=== PATIENT | male | born 1960 | race Caucasian/White ===

== ENCOUNTER → 2017-01-10 | Outpatient (CLI) | payer BC ==
[2017-01-10 08:38] LABS: CHLORIDE,CL 105 mmol/L (98-110); SODIUM,NA 140 mmol/L (136-146)
== END ==
LOC: MW.CHFP 07:33
PROVIDERS: ATTEND Emergency Medicine
DX: E11.69 Type 2 diabetes mellitus with other specified complication (principal); E78.5 Hyperlipidemia, unspecified
CPT/HCPCS: 36415; 80048; 80061; 82044; 83036; 84460

== ENCOUNTER 2020-02-07 10:20 | Emergency (ER) | payer BC ==
[2020-02-07] MEDS ORDERED: Sodium Chloride 0.9% 10 ML Syringe FLUSH PRN (10:44)
[2020-02-07] MEDS ORDERED: Ketorolac 30 MG/ML SDV IVPUSH ONE (10:44)
[2020-02-07] MEDS ORDERED: Sodium Chloride 0.9% 1,000 ML IV ONE (10:44)
[2020-02-07] MEDS ORDERED: Sodium Chloride 0.9% 2.5 ML Syringe FLUSH PRN (10:44)
--- NOTE | 2020-02-07 10:44 | EDM.PDOC ---
ED HPI GENERAL MEDICAL PROBLEM - General Chief Complaint: Genitourinary Problem Stated Complaint: REN ASHLEY STONE Time Seen by Provider: 02/07/20 10:40 Source of Information: Reports: Patient History Limitations: Reports: No Limitations - History of Present Illness INITIAL COMMENTS - FREE TEXT/NARRATIVE: HISTORY AND PHYSICAL: History of present illness: Patient is a 59-year-old male presents to the ED with complaint of possible kidney stone. He states he woke up this morning with pain in his middle low back. He states pain is constant. He vomited once on his way to the ED this morning. He denies fevers, chills, dysuria, hematuria, abdominal or testicular pain, chest pain, shortness of breath. He states he has had a kidney stone once years ago. Past medical history significant or diabetes and hypertension. Review of systems: As per history of present illness and below otherwise all systems reviewed and negative. Past medical history: As per history of present illness and as reviewed below otherwise noncontributory. Surgical history: As per history of present illness and as reviewed below otherwise noncontributory. Social history: No reported history of drug or alcohol abuse. Family history: As per history of present illness and as reviewed below otherwise noncontributory. Physical exam: General: Patient sitting comfortably in no acute distress and nontoxic appearing HEENT: Atraumatic, normocephalic, pupils reactive, negative for conjunctival pallor or scleral icterus, mucous membranes moist, throat clear, neck supple, nontender, trachea midline. No meningeal signs. Lungs: Clear to auscultation, breath sounds equal bilaterally, chest nontender. Heart: S1S2, regular, negative for clicks, rubs, or overt murmur. Abdomen: Soft, nondistended, nontender. Negative for masses or hepatosplenomegaly. Negative for costovertebral tenderness. No rigidity, rebound , guarding. Pelvis: Stable nontender. Genitourinary: Deferred. Rectal: Deferred. Extremities: Atraumatic, negative for cords or calf pain. Neurovascular unremarkable. Neuro: Awake, alert, oriented. Cranial nerves II through XII unremarkable. Cerebellum unremarkable. Motor and sensory unremarkable throughout. Exam nonfocal. Notes: Diagnostics: CBC, CMP, UA Therapeutics: 1L NS IV 30mg Toradol IV Prescriptions: Minerva Impression: Kidney stone Plan: Take flomax and use strainer as instructed Take norco as needed for severe pain, do not take while driving as it may make you drowsy Follow up with primary care provider and urology as discussed Return to ED As needed as discussed Definitive disposition and diagnosis as appropriate pending reevaluation and review of above. Bilateral Flank Pain Score (Numeric/FACES): 10 - Related Data Allergies Allergy/AdvReac Type Severity Reaction Status Date / Time morphine Allergy Nausea and Verified 02/07/20 10:43 Vomiting Home Meds: Home Meds Aspirin 81 mg PO DAILY 02/07/20 [History] Hydrocodone/Acetaminophen [Minerva 5-325 Tablet] 1 each PO Q6H #12 tablet [Rx] Tamsulosin HCl [Flomax] 0.4 mg PO DAILY #10 capsule 02/07/20 [Rx] lisinopriL [Lisinopril] 40 mg PO DAILY 02/07/20 [History] metFORMIN [Glucophage XR] 500 mg PO DAILY 02/07/20 [History] ED ROS GENERAL - Review of Systems Review Of Systems: Comprehensive ROS is negative, except as noted in HPI. ED EXAM, RENAL/ - Physical Exam Exam: See Below (see dictation) Course - Vital Signs Last Recorded V/S: Last Vital Signs Temp 97.8 F 02/07/20 10:44 Pulse 97 02/07/20 12:15 Resp 16 02/07/20 12:15 BP 165/76 H 02/07/20 12:15 Pulse Ox 97 02/07/20 12:15 - Orders/Labs/Meds Orders: Active Orders 24 hr Category Date Time Status Sodium Chloride 0.9% [Saline Flush] Med 02/07/20 10:44 Ordered 10 ml FLUSH ASDIRECTED PRN Sodium Chloride 0.9% [Saline Flush] Med 02/07/20 10:44 Ordered 2.5 ml FLUSH ASDIRECTED PRN Saline Lock Insert [OM.PC] Stat Oth 02/07/20 10:44 Ordered Medication Orders Sodium Chloride (Saline Flush) 10 ml FLUSH ASDIRECTED PRN PRN Reason: Keep Vein Open Last Admin: 02/07/20 10:50 Dose: 10 ml Sodium Chloride (Saline Flush) 2.5 ml FLUSH ASDIRECTED PRN PRN Reason: Keep Vein Open Last Admin: 02/07/20 10:50 Dose: 2.5 ml Labs: Laboratory Tests 02/07/20 02/07/20 02/07/20 Range/Units 10:30 10:50 10:50 WBC 9.40 (4.0-11.0) K/uL RBC 4.75 (4.50-5.90) M/uL Hgb 15.3 (13.0-17.0) g/dL Hct 44.6 (38.0-50.0) % MCV 93.9 (80.0-98.0) fL MCH 32.2 H (27.0-32.0) pg MCHC 34.3 (31.0-37.0) g/dL RDW Std Deviation 43.6 (28.0-62.0) fl RDW Coeff of Zane 13 (11.0-15.0) % Plt Count 248 (150-400) K/uL MPV 9.60 (7.40-12.00) fL Neut % (Auto) 76.7 (48.0-80.0) % Lymph % (Auto) 14.8 L (16.0-40.0) % Cowley % (Auto) 6.3 (0.0-15.0) % Eos % (Auto) 1.7 (0.0-7.0) % Baso % (Auto) 0.5 (0.0-1.5) % Neut # (Auto) 7.2 H (1.4-5.7) K/uL Lymph # (Auto) 1.4 (0.6-2.4) K/uL Cowley # (Auto) 0.6 (0.0-0.8) K/uL Eos # (Auto) 0.2 (0.0-0.7) K/uL Baso # (Auto) 0.1 (0.0-0.1) K/uL Nucleated RBC % 0.0 /100WBC Nucleated RBCs # 0 K/uL Sodium 138 (136-148) mmol/L Potassium 4.7 (3.5-5.1) mmol/L Chloride 103 (98-107) mmol/L Carbon Dioxide 27.8 (21.0-32.0) mmol/L BUN 10 (7.0-18.0) mg/dL Creatinine 1.3 (0.8-1.3) mg/dL Est Cr Clr Drug Dosing 63.95 mL/min Estimated GFR (MDRD) 56.7 ml/min Glucose 188 H (74-106) mg/dL Calcium 9.3 (8.5-10.1) mg/dL Total Bilirubin 0.7 (0.2-1.0) mg/dL AST 16 (15-37) IU/L ALT 24 (14-63) IU/L Alkaline Phosphatase 84 (46-116) U/L Total Protein 7.5 (6.4-8.2) g/dL Albumin 4.1 (3.4-5.0) g/dL Globulin 3.4 (2.6-4.0) g/dL Albumin/Globulin Ratio 1.2 (0.9-1.6) Urine Color YELLOW Urine Appearance CLEAR Urine pH 6.5 (5.0-8.0) Ur Specific [place] 1.020 (1.001-1.035) Urine Protein NEGATIVE (NEGATIVE) mg/dL Urine Glucose (UA) NEGATIVE (NEGATIVE) mg/dL Urine Ketones NEGATIVE (NEGATIVE) mg/dL Urine Occult Blood LARGE H (NEGATIVE) Urine Nitrite NEGATIVE (NEGATIVE) Urine Bilirubin NEGATIVE (NEGATIVE) Urine Urobilinogen 0.2 (<2.0) EU/dL Ur Leukocyte Esterase NEGATIVE (NEGATIVE) Urine RBC 10-15 (0-2/HPF) Urine WBC 0-1 (0-5/HPF) Ur Epithelial Cells RARE (NONE-FEW) Urine Bacteria RARE (NEGATIVE) Meds: Medications Generic Name Dose Route Start Last Admin Trade Name Freq PRN Reason Stop Dose Admin Sodium Chloride 10 ml 02/07/20 10:44 02/07/20 10:50 Saline Flush FLUSH 10 ml ASDIRECTED PRN Administration Keep Vein Open Sodium Chloride 2.5 ml 02/07/20 10:44 02/07/20 10:50 Saline Flush FLUSH 2.5 ml ASDIRECTED PRN Administration Keep Vein Open Discontinued Medications Generic Name Dose Route Start Last Admin Trade Name Freq PRN Reason Stop Dose Admin Sodium Chloride 1,000 mls @ 999 mls/hr 02/07/20 10:44 02/07/20 10:49 Normal Saline IV 02/07/20 11:44 999 mls/hr STAT ONE Administration Ketorolac Tromethamine 30 mg 02/07/20 10:44 02/07/20 10:50 Toradol IVPUSH 02/07/20 10:45 30 mg ONETIME ONE Administration Departure - Departure Time of Disposition: 12:18 Disposition: Home, Self-Care 01 Condition: Good Clinical Impression: Ureterolithiasis - Discharge Information Prescriptions: Hydrocodone/Acetaminophen [Minerva 5-325 Tablet] 1 each PO Q6H #12 tablet Tamsulosin HCl [Flomax] 0.4 mg PO DAILY #10 capsule Referrals: Jourdan Cornejo MD [Primary Care Provider] - Forms: ED Department Discharge Additional Instructions: The following information is given to patients seen in the emergency department who are being discharged to home. This information is to outline your options for follow-up care. We provide all patients seen in our emergency department with a follow-up referral. The need for follow-up, as well as the timing and circumstances, are variable depending upon the specifics of your emergency department visit. If you don't have a primary care physician on staff, we will provide you with a referral. We always advise you to contact your personal physician following an emergency department visit to inform them of the circumstance of the visit and for follow-up with them and/or the need for any referrals to a consulting specialist. The emergency department will also refer you to a specialist when appropriate. This referral assures that you have the opportunity for follow-up care with a specialist. All of these measure are taken in an effort to provide you with optimal care, which includes your follow-up. Under all circumstances we always encourage you to contact your private physician who remains a resource for coordinating your care. When calling for follow-up care, please make the office aware that this follow-up is from your recent emergency room visit. If for any reason you are refused follow-up, please contact the [facility] Emergency Department at and asked to speak to the emergency department charge nurse. [facility] [address] [place] [id number] [facility] [address] [place] [address] [facility] Specialty Care - Urology [address] [place] [id number] Take flomax and use strainer as instructed Take norco as needed for severe pain, do not take while driving as it may make you drowsy Follow up with primary care provider and urology as discussed Return to ED As needed as discussed Sepsis Event Note - Focused Exam Vital Signs: Vital Signs Temp Pulse Resp BP Pulse Ox 02/07/20 12:15 97 16 165/76 H 97 02/07/20 11:37 81 16 137/51 L 96 02/07/20 10:44 97.8 F 64 18 206/97 H 97 Date Exam was Performed: 02/07/20 Time Exam was Performed: 12:25 - My Orders Last 24 Hours: My Active Orders 02/07/20 10:44 Sodium Chloride 0.9% [Saline Flush] 10 ml FLUSH ASDIRECTED PRN Sodium Chloride 0.9% [Saline Flush] 2.5 ml FLUSH ASDIRECTED PRN Saline Lock Insert [OM.PC] Stat - Assessment/Plan Last 24 Hours: My Active Orders 02/07/20 10:44 Sodium Chloride 0.9% [Saline Flush] 10 ml FLUSH ASDIRECTED PRN Sodium Chloride 0.9% [Saline Flush] 2.5 ml FLUSH ASDIRECTED PRN Saline Lock Insert [OM.PC] Stat
[2020-02-07 11:31] LABS: CARBON DIOXIDE,CO2 27.8 mmol/L (21.0-32.0); POTASSIUM,K 4.7 mmol/L (3.5-5.1)
--- NOTE | 2020-02-07 12:08 | CT ---
INDICATION: Bilateral flank pain. TECHNIQUE: CT abdomen and pelvis without contrast. COMPARISON: CT of the abdomen and pelvis 09/04/2012. FINDINGS: Lower chest: Unremarkable. Liver: Unremarkable. Gallbladder and bile ducts: No cholelithiasis or biliary ductal dilatation. Spleen: Unremarkable. Pancreas: Unremarkable. Adrenal glands: Unremarkable. Kidneys: The right kidney appears slightly edematous and there is mild hydroureteronephrosis and periureteral standing throughout its course. A 3 mm obstructing stone is seen at the right ureterovesicular junction (series 201, image 150). No renal stones bilaterally. No hydronephrosis on the left. No renal lesions within limitations of a noncontrast exam. GI tract: There is malrotation of the midgut with the duodenum never crossing the midline, small bowl in the right abdomen and cecum is in the left mid abdomen with a normal appearing appendix. No bowel obstruction or inflammation. Colonic diverticulosis. Appendix is normal. Vascular structures: No abdominal aortic aneurysm. Lymph nodes: Unremarkable. Miscellaneous: No free air or ascites. Pelvic Organs: Unremarkable. Bones: No acute abnormality. No suspicious bone lesion. Degenerative changes affect the spine. IMPRESSION: 1. There is a 3 mm obstructing stone at the right ureterovesicular junction resulting in mild right hydroureteronephrosis. 5The right kidney also appears slightly edematous. 2. Congenital midgut malrotation. No volvulus. Nonemergent general surgery consultation is recommended. Please note that all CT scans at this facility use dose modulation, iterative reconstruction, and/or weight-based dosing when appropriate to reduce radiation dose to as low as reasonably achievable. Dictated by Melodie Miller MD @ Feb 07 2020 11:49AM Signed by Dr. Melodie Miller @ Feb 07 2020 12:07PM
== END 2020-02-07 12:30 | disposition home or self-care (01) ==
LOC: MW.ED 10:20
DX: N13.2 Hydronephrosis with renal and ureteral calculous obstruction (principal); Z88.5 Allergy status to narcotic agent; Z79.82 Long term (current) use of aspirin; Z79.899 Other long term (current) drug therapy
CPT/HCPCS: 36415; 74176; 80053; 81001; 85025; 96361; 96374; 99284; J1885; J7030; 99283

== ENCOUNTER 2024-02-06 08:17 | Day surgery (SDC) | payer BC ==
[2024-02-06] MEDS: Lactated Ringers 1,000 ML IV SCH (09:12)
[2024-02-06] MEDS ORDERED: propofoL 50 ML ONE ×2 (09:43→15:00)
== END 2024-02-06 16:10 | disposition home or self-care (01) ==
LOC: MW.SDS 08:17
PROVIDERS: ATTEND Surgery
DX: Z12.11 Encounter for screening for malignant neoplasm of colon (principal); K57.30 Diverticulosis of large intestine without perforation or abscess without bleeding; K64.8 Other hemorrhoids; E78.5 Hyperlipidemia, unspecified; I10 Essential (primary) hypertension; E66.9 Obesity, unspecified; G47.33 Obstructive sleep apnea (adult) (pediatric); Z79.84 Long term (current) use of oral hypoglycemic drugs; Z79.899 Other long term (current) drug therapy; Z68.32 Body mass index [BMI] 32.0-32.9, adult; Z88.5 Allergy status to narcotic agent
CPT/HCPCS: 45378; 82947; J2704; J7120

== ENCOUNTER 2024-06-28 03:26 | Emergency (ER) | payer BC ==
[2024-06-28 03:58] LABS: BASOPHILS ABSOLUTE AUTO 0.08 K/uL (0.00-0.20); EOSINOPHILS ABSOLUTE AUTO 0.18 K/uL (0.00-0.45); EOSINOPHILS PERCENT AUTO 2.2 % (0.0-6.0); HEMATOCRIT 44.9 % (42.0-52.0); HEMOGLOBIN 15.7 g/dL (14.0-18.0); IMMATURE GRAN ABSOLUTE AUTO 0.03 K/uL (0.00-0.05); IMMATURE GRAN PERCENT AUTO 0.4 % (0.0-0.4); LYMPHOCYTES ABSOLUTE AUTO 2.58 K/uL (1.00-4.80); LYMPHOCYTES PERCENT AUTO 31.9 % (24.0-44.0); MEAN CORPUSCULAR HEMOGLOBIN 32.2 pg (28.0-32.0); MEAN PLATELET VOLUME 8.9 fL (9.4-12.4); MONOCYTES ABSOLUTE AUTO 0.85 K/uL (0.00-0.80); MONOCYTES PERCENT AUTO 10.5 % (0.0-8.0); NEUTROPHILS ABSOLUTE AUTO 4.38 K/uL (1.80-7.70); PLATELET COUNT,PLT 233 K/uL (150-400); RED BLOOD CELL COUNT 4.88 M/uL (4.52-5.90)
[2024-06-28] MEDS: Ketorolac 30 MG/ML SDV IVPUSH ONE (03:58)
[2024-06-28] MEDS: Ondansetron 4 MG/2 ML SDV IVPUSH ONE (03:58)
[2024-06-28 04:03] LABS: BILIRUBIN,URINE NEGATIVE (NEGATIVE); COLOR,URINE YELLOW; GLUCOSE,URINE 100 mg/dL (NEGATIVE); KETONES,URINE NEGATIVE (NEGATIVE); LEUKOCYTE ESTERASE,URINE NEGATIVE (NEGATIVE); NITRITE,URINE NEGATIVE (NEGATIVE); OCCULT BLOOD,URINE LARGE (NEGATIVE); PH,URINE 5.5 (5.0-8.0); PROTEIN,URINE NEGATIVE (NEGATIVE); UROBILINOGEN,URINE 0.2 EU/dL (<2.0)
[2024-06-28 04:08] LABS: APPEARANCE,URINE HAZY
[2024-06-28 04:16] LABS: BACTERIA,URINE RARE (NEGATIVE); EPITHELIAL CELLS,URINE RARE (NONE-FEW); RBC,URINE 75-100 (0-2/HPF); WBC,URINE 0-1 (0-5/HPF)
[2024-06-28 04:27] LABS: A/G RATIO 1.1 (0.9-1.6); ALBUMIN 4.2 g/dL (3.4-5.0); BILIRUBIN TOTAL 0.8 mg/dL (0.2-1.0); CALCIUM 10.5 mg/dL (8.5-10.1); CARBON DIOXIDE,CO2 28.5 mmol/L (21.0-32.0); CREATININE 1.7 mg/dL (0.8-1.3); EST CRCL DRUG DOSING (CG) 45.92 mL/min; POTASSIUM,K 4.9 mmol/L (3.5-5.1); PROTEIN TOTAL,TP 7.9 g/dL (6.4-8.2)
[2024-06-28] MEDS: Tamsulosin 0.4 MG Cap.ER PO ONE (05:13)
[2024-06-28] MEDS: Sodium Chloride 0.9% 1,000 ML IV SCH (05:13)
[2024-06-28 06:48] LABS: GLUCOSE,URINE 100 mg/dL (NEGATIVE); KETONES,URINE TRACE mg/dL (NEGATIVE); LEUKOCYTE ESTERASE,URINE NEGATIVE (NEGATIVE); NITRITE,URINE NEGATIVE (NEGATIVE); OCCULT BLOOD,URINE LARGE (NEGATIVE); PH,URINE 5.5 (5.0-8.0); PROTEIN,URINE NEGATIVE (NEGATIVE); UROBILINOGEN,URINE 0.2 EU/dL (<2.0)
[2024-06-28 06:52] LABS: APPEARANCE,URINE HAZY; BILIRUBIN,URINE SMALL (NEGATIVE); COLOR,URINE DARK YELLOW
[2024-06-28 07:02] LABS: WBC,URINE 0-1 (0-5/HPF)
[2024-06-28 07:03] LABS: BACTERIA,URINE FEW (NEGATIVE); EPITHELIAL CELLS,URINE RARE (NONE-FEW)
== END 2024-06-28 07:32 | disposition home or self-care (01) ==
LOC: MW.ED 03:26
DX: N20.0 Calculus of kidney (principal); E11.9 Type 2 diabetes mellitus without complications; E66.9 Obesity, unspecified; I10 Essential (primary) hypertension; Z79.84 Long term (current) use of oral hypoglycemic drugs; Z79.899 Other long term (current) drug therapy; Z88.5 Allergy status to narcotic agent
CPT/HCPCS: 36415; 74176; 80053; 81001; 83690; 85025; 96361; 96374; 96375; 99284; A9270; J1885; J2405; J7030

== ENCOUNTER 2025-04-13 10:43 | Observation (INO) | payer BC ==
[2025-04-13 14:49] LABS: BASOPHILS ABSOLUTE AUTO 0.08 K/uL (0.00-0.20); BASOPHILS PERCENT AUTO 1.2 % (0.0-1.0); EOSINOPHILS ABSOLUTE AUTO 0.20 K/uL (0.00-0.45); EOSINOPHILS PERCENT AUTO 3.0 % (0.0-6.0); IMMATURE GRAN ABSOLUTE AUTO 0.06 K/uL (0.00-0.05); IMMATURE GRAN PERCENT AUTO 0.9 % (0.0-0.4); LYMPHOCYTES ABSOLUTE AUTO 1.82 K/uL (1.00-4.80); LYMPHOCYTES PERCENT AUTO 27.6 % (24.0-44.0); MEAN PLATELET VOLUME 10.4 fL (9.4-12.4); MONOCYTES ABSOLUTE AUTO 0.57 K/uL (0.00-0.80); MONOCYTES PERCENT AUTO 8.6 % (0.0-8.0); NEUTROPHILS ABSOLUTE AUTO 3.87 K/uL (1.80-7.70); NEUTROPHILS PERCENT AUTO 58.7 % (41.0-71.0); NRBC ABSOLUTE 0.00 K/uL (0.00-0.02); NRBC PERCENT 0.0 /100WBC (0.0-0.2); PLATELET COUNT,PLT 219 K/uL (150-400); RED BLOOD CELL COUNT 4.63 M/uL (4.52-5.90); WHITE BLOOD CELL COUNT,WBC 6.60 K/uL (3.9-11.3)
[2025-04-13 14:58] LABS: INR 1.01 (0.86-1.11); PTT,PARTIAL THROMBOPLSTIN TIME 24.1 SEC (23.9-30.7)
[2025-04-13 15:01] LABS: A/G RATIO 1.1 (0.9-1.6); ALANINE AMINOTRANSFERASE,ALT 36.0 IU/L (14-63); ASPARTATE AMNIOTRANSFERASE,AST 20.0 IU/L (15-37); BILIRUBIN TOTAL 0.6 mg/dL (0.2-1.0); BLOOD UREA NITROGEN,BUN 21.0 mg/dL (7.0-18.0); CARBON DIOXIDE,CO2 27.6 mmol/L (21.0-32.0); CHLORIDE,CL 99.0 mmol/L (98-107); CREATININE 1.4 mg/dL (0.8-1.3); EST CRCL DRUG DOSING (CG) 58.51 mL/min; GLUCOSE RANDOM 375.0 mg/dL (74-106); POTASSIUM,K 5.2 mmol/L (3.5-5.1); PROTEIN TOTAL,TP 7.5 g/dL (6.4-8.2); SODIUM,NA 135.0 mmol/L (136-148)
[2025-04-13 15:06] LABS: ESTIMATED GFR 56.0 mL/min (>60)
[2025-04-13] MEDS: Iopamidol 755 MG/ML 500 ML Multipack Bottle IVPUSH STA (15:46)
[2025-04-13] MEDS ORDERED: 50% Dextrose in Water 50 ML Syringe IVPUSH PRN ×2 (16:50→18:53)
[2025-04-13] MEDS: Insulin Regular, Human 100 Units/ML 10 ML Vial IVPUSH ONE (17:03)
[2025-04-13 18:19] LABS: A/G RATIO 1.1 (0.9-1.6); ALANINE AMINOTRANSFERASE,ALT 34.0 IU/L (14-63); BILIRUBIN TOTAL 0.4 mg/dL (0.2-1.0); BLOOD UREA NITROGEN,BUN 18.0 mg/dL (7.0-18.0); CARBON DIOXIDE,CO2 30.0 mmol/L (21.0-32.0); CHLORIDE,CL 101.0 mmol/L (98-107); CREATININE 1.3 mg/dL (0.8-1.3); EST CRCL DRUG DOSING (CG) 63.01 mL/min; ESTIMATED GFR 61.0 mL/min (>60); GLUCOSE RANDOM 238.0 mg/dL (74-106); POTASSIUM,K 4.3 mmol/L (3.5-5.1); PROTEIN TOTAL,TP 7.0 g/dL (6.4-8.2); SODIUM,NA 137.0 mmol/L (136-148)
[2025-04-13 18:38] LABS: ASPARTATE AMNIOTRANSFERASE,AST 25.0 IU/L (15-37)
[2025-04-13] MEDS ORDERED: Enoxaparin 150 MG/1 ML Syringe SUBCUT SCH (18:45)
[2025-04-13] MEDS ORDERED: Sodium Chloride 0.9% 10 ML Syringe FLUSH PRN (18:56)
[2025-04-13] MEDS ORDERED: Sodium Chloride 0.9% 2.5 ML Syringe FLUSH PRN (18:56)
[2025-04-13] MEDS: Enoxaparin 150 MG/1 ML Syringe SUBCUT SCH (20:30)
[2025-04-14] MEDS ORDERED: Enoxaparin 150 MG/1 ML Syringe SUBCUT SCH ×2 (06:00→06:45)
[2025-04-14 06:09] LABS: BASOPHILS ABSOLUTE AUTO 0.04 K/uL (0.00-0.20); BASOPHILS PERCENT AUTO 0.9 % (0.0-1.0); EOSINOPHILS ABSOLUTE AUTO 0.15 K/uL (0.00-0.45); EOSINOPHILS PERCENT AUTO 3.4 % (0.0-6.0); IMMATURE GRAN ABSOLUTE AUTO 0.03 K/uL (0.00-0.05); IMMATURE GRAN PERCENT AUTO 0.7 % (0.0-0.4); LYMPHOCYTES ABSOLUTE AUTO 1.71 K/uL (1.00-4.80); LYMPHOCYTES PERCENT AUTO 39.0 % (24.0-44.0); MEAN PLATELET VOLUME 9.9 fL (9.4-12.4); MONOCYTES ABSOLUTE AUTO 0.39 K/uL (0.00-0.80); MONOCYTES PERCENT AUTO 8.9 % (0.0-8.0); NEUTROPHILS ABSOLUTE AUTO 2.06 K/uL (1.80-7.70); NEUTROPHILS PERCENT AUTO 47.1 % (41.0-71.0); NRBC ABSOLUTE 0.00 K/uL (0.00-0.02); NRBC PERCENT 0.0 /100WBC (0.0-0.2); PLATELET COUNT,PLT 196 K/uL (150-400); RED BLOOD CELL COUNT 4.34 M/uL (4.52-5.90); WHITE BLOOD CELL COUNT,WBC 4.38 K/uL (3.9-11.3)
[2025-04-14 06:35] LABS: BLOOD UREA NITROGEN,BUN 16.0 mg/dL (7.0-18.0); CARBON DIOXIDE,CO2 25.7 mmol/L (21.0-32.0); CHLORIDE,CL 101.0 mmol/L (98-107); CREATININE 1.2 mg/dL (0.8-1.3); EST CRCL DRUG DOSING (CG) 68.26 mL/min; GLUCOSE RANDOM 355.0 mg/dL (74-106); POTASSIUM,K 4.3 mmol/L (3.5-5.1); SODIUM,NA 136.0 mmol/L (136-148)
[2025-04-14 06:36] LABS: ESTIMATED GFR 68.0 mL/min (>60)
[2025-04-14] MEDS: Iopamidol 755 MG/ML 500 ML Multipack Bottle IVPUSH STA (06:40)
== END 2025-04-14 14:20 | disposition home or self-care (01) ==
LOC: MW.ED 10:43 → MW.MS 18:44
PROVIDERS: ADMIT Internal Medicine; ATTEND Internal Medicine
DX: I82.411 Acute embolism and thrombosis of right femoral vein (principal); E11.65 Type 2 diabetes mellitus with hyperglycemia; E87.5 Hyperkalemia; I10 Essential (primary) hypertension; E66.9 Obesity, unspecified; Z88.5 Allergy status to narcotic agent; Z68.30 Body mass index [BMI] 30.0-30.9, adult; Z79.01 Long term (current) use of anticoagulants; Z79.84 Long term (current) use of oral hypoglycemic drugs; Z79.82 Long term (current) use of aspirin; Z79.899 Other long term (current) drug therapy
CPT/HCPCS: 36415; 71275; 71275-26; 80048; 80053; 82947; 83036; 84484; 85025; 85610; 85730; 93005; 93010; 93971-26-RT; 93971-RT; 96360; 96372; 99285; 99285-25; G0378; J1650; J1815-GY; J7030; Q9967

== ENCOUNTER 2025-06-19 07:25 | Emergency (ER) | payer BC ==
[2025-06-19] MEDS: Ketorolac 30 MG/ML SDV IM ONE (08:07)
[2025-06-19] MEDS: Acetaminophen/HYDROcodone 325-5 MG Tab PO ONE (08:08)
[2025-06-19] MEDS: Ondansetron 4 MG Tab.DIS PO ONE (08:08)
[2025-06-19] MEDS: fentaNYL 100 MCG/2 ML SDV IM ONE (10:02)
[2025-06-19] MEDS: Acetaminophen/oxyCODONE 325-5 MG Tab PO ONE (10:55)
== END 2025-06-19 11:18 | disposition home or self-care (01) ==
LOC: MW.ED 07:25
DX: R07.81 Pleurodynia (principal); E11.9 Type 2 diabetes mellitus without complications; I10 Essential (primary) hypertension; Z88.5 Allergy status to narcotic agent; Z79.899 Other long term (current) drug therapy; Z79.01 Long term (current) use of anticoagulants; Z79.84 Long term (current) use of oral hypoglycemic drugs
CPT/HCPCS: 71101; 96372; 99283; A9270; J1885; J3010